=== PATIENT | female | born 1965 | race Caucasian/White ===

== ENCOUNTER 2017-08-18 15:18 | Emergency (ER) | payer SELFPAY ==
[~2017-08-18] VITALS: Ht 157.5 cm; Wt 45.0 kg
[2017-08-18] MEDS ORDERED: ORPHENADRINE100 MG PO (15:48)
[2017-08-18] MEDS ORDERED: IBUPROFEN600 MG PO (15:50)
[2017-08-18 15:55] VITALS: BP 110/60
== END 2017-08-18 15:55 | disposition home or self-care (01) | DRG 563 ==
LOC: ED 15:18
DX: S46.811A Strain of other muscles, fascia and tendons at shoulder and upper arm level, right arm, initial encounter (principal); X50.0XXA Overexertion from strenuous movement or load, initial encounter; Y93.E5 Activity, floor mopping and cleaning; Y92.128 Other place in nursing home as the place of occurrence of the external cause